=== PATIENT | female | born 1995 | race Caucasian/White ===

== ENCOUNTER → 2018-06-17 | Outpatient (CLI) | payer OTHER | LOC: LAB 17:27 | PROVIDERS: ATTEND Nurse Practitioner Acute Care | DX: R30.0 Dysuria (principal) | CPT/HCPCS: 87086; 87088; 87186 ==

== ENCOUNTER → 2018-07-26 | Outpatient (CLI) | payer OTHER ==
[2018-07-26 17:18] LABS: BACTERIA (WET MOUNT) 4+ BACTERIA SEEN; EPITHELIALS (WET MOUNT) 4+ EPITHELIALS SEEN; T.VAGINALIS (WET MOUNT) NO TRICHOMONAS SEEN; WBCS (WET MOUNT) FEW WBCS SEEN; YEAST (WET MOUNT) NO YEAST SEEN
[2018-07-26 18:58] LABS: CHLAM PCR NOT DETECTED (NOT DETECT); GON PCR DETECTED (NOT DETECT)
== END ==
LOC: LAB 16:58
PROVIDERS: ATTEND Nurse Practitioner Family
DX: N89.8 Other specified noninflammatory disorders of vagina (principal)
CPT/HCPCS: 87086; 87210; 87491; 87591

== ENCOUNTER → 2019-01-11 | Outpatient (CLI) | payer OTHER | LOC: LAB 08:52 | PROVIDERS: ATTEND Obstetrics & Gynecology Gynecology | DX: Z32.02 Encounter for pregnancy test, result negative (principal) | CPT/HCPCS: 36415; 84702 ==

== ENCOUNTER 2019-06-14 19:21 | Emergency (ER) | payer OTHER ==
[2019-06-14] MEDS ORDERED: IBUPROFEN 600 MG TABLET PO ONE (19:34)
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
[2019-06-14] MEDS ORDERED: TETRACAINE HCL 0.5% OPH SOLN 4 ML ONE (21:11)
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
[2019-06-14] MEDS ORDERED: ERYTHROMYCIN 0.5% OPH OINTMENT 3.5 GM (ER DISP) OD PRN (21:34)
[2019-06-14] MEDS ORDERED: HYDROCODONE/ACETAMINOPHEN 5-325 MG (6 TAB/ER DISP) PO PRN (21:35)
[2019-06-14 22:13] VITALS: BP 128/78
== END 2019-06-14 22:10 | disposition home or self-care (01) ==
LOC: ER 19:21
DX: S05.01XA Injury of conjunctiva and corneal abrasion without foreign body, right eye, initial encounter (principal); W22.8XXA Striking against or struck by other objects, initial encounter
CPT/HCPCS: 99283; J3490